=== PATIENT | female | born 2000 | race Caucasian/White ===

== ENCOUNTER 2018-10-07 18:06 | Emergency (ER) | payer OTHER ==
--- NOTE | 2018-10-07 18:45 | ER Document Report ---
ED Medical Screen (RME) - General Chief Complaint: Abdominal Cramping Stated Complaint: VAGINAL CRAMPING/BLEEDING Time Seen by Provider: 10/07/18 18:41 Mode of Arrival: Ambulatory Information source: Patient Notes: 17-year-old female presents to the emergency room with pelvic cramping and vaginal bleeding (small amount) since yesterday. Patient knows her blood type: It is O-. Patient knows her 's blood type and it is also O-. So both mother and father have a blood type that is Rh-. Patient denies any vomiting, abdominal pain, chest pain or shortness of breath. Patient denies any recent illnesses. - HPI Onset: Yesterday Onset/Duration: Gradual Quality of pain: Cramping Severity: None Pain Level: Denies Associated Symptoms: denies: Chest pain, Diarrhea, Nausea, Shortness of breath Exacerbated by: Denies Relieved by: Denies Similar symptoms previously: No Recently seen / treated by doctor: No - Related Data Smoking: Non-smoker Frequency of alcohol use: None Drug Abuse: None Allergies/Adverse Reactions: No Known Allergies Allergy (Unverified 10/07/18 18:08) Past Medical History - General Information source: Patient - Social History Cigarette use (# per day): No Chew tobacco use (# tins/day): No Frequency of alcohol use: None Drug Abuse: None Lives with: Family Family history: None - Medical History Medical History: Negative Renal/ Medical History: Denies: Hx Peritoneal Dialysis Surgical Hx: Negative Review of Systems - Review of Systems Constitutional: denies: Chills, Fever EENT: No symptoms reported Cardiovascular: No symptoms reported Respiratory: No symptoms reported Gastrointestinal: No symptoms reported Genitourinary: No symptoms reported Female Genitourinary: See HPI Musculoskeletal: No symptoms reported Skin: No symptoms reported Hematologic/Lymphatic: No symptoms reported Neurological/Psychological: No symptoms reported Physical Exam - Vital signs Vitals: Temp Pulse Resp BP Pulse Ox 99.9 F 79 16 131/73 H 100 10/07/18 18:19 10/07/18 18:19 10/07/18 18:19 10/07/18 18:19 10/07/18 18:19 Notes: Physical exam: GENERAL: Patient is alert and oriented x3, no acute distress HEAD: Atraumatic, normocephalic. EYES: Pupils equal round and reactive to light, extraocular movements intact, sclera anicteric, conjunctiva are normal. ENT: Moist mucous membranes. NECK: Normal range of motion, supple without obvious mass or JVD. LUNGS: Breath sounds clear to auscultation bilaterally and equal. No wheezes ra les or rhonchi. HEART: Regular rate and rhythm without murmurs, rubs or gallops. ABDOMEN: Soft, normoactive bowel sounds. No tenderness to palpation. No guarding, no rebound. No masses appreciated. Pelvic: Deferred (patient getting transvaginal ultrasound). EXTREMITIES: Normal range of motion, no pitting or edema. No clubbing or cyanosis. NEUROLOGICAL: Cranial nerves II through XII grossly intact. Normal speech, moving all extremities. PSYCH: Normal mood, normal affect. SKIN: Warm, Dry, normal turgor, no rashes or lesions noted. Course - Re-evaluation Re-evalutation: 10/07/18 20:25 As mentioned already: The patient's blood type is O-. The 's blood type is known and it is also O-. I discussed the issue of RhoGam and we have deferred that test. Patient otherwise looks good and the ultrasound looks good. - Vital Signs Vital signs: Temp Pulse Resp BP Pulse Ox 99.9 F 79 16 131/73 H 100 10/07/18 18:19 10/07/18 18:19 10/07/18 18:19 10/07/18 18:19 10/07/18 18:19 - Laboratory Laboratory results interpreted by me: 10/07/18 19:15 Urine Urobilinogen 2.0 H - Diagnostic Test Radiology reviewed: Image reviewed, Reports reviewed - Ultrasound shows a living intrauterine at 8 weeks, 3 days. The baby's heartbeat was 175. Doctor's Discharge - Discharge Clinical Impression: Vaginal bleeding in early Condition: Stable Disposition: HOME, SELF-CARE Instructions: Bleeding During Early ([facility]) Additional Instructions: As we discussed, the ultrasound showed a living intrauterine at 8 weeks and 3 days. The baby's heartbeat was 175 which is good. Because of the bleeding, I want you to take it easy over the next 2 weeks. Avoid heavy lifting. Avoid intercourse. Follow-up with your OB doctor. Return to the emergency room for worsening cramping, vaginal bleeding or any concerns or getting worse.
[2018-10-07 19:33] LABS: APPEARANCE,URINE CLEAR; BILIRUBIN,URINE NEGATIVE (NEGATIVE); COLOR,URINE YELLOW; GLUCOSE, URINE NEGATIVE (NEGATIVE); KETONES,URINE NEGATIVE (NEGATIVE); LEUKOCYTE ESTERASE,URINE NEGATIVE (NEGATIVE); NITRITE,URINE NEGATIVE (NEGATIVE); PROTEIN,URINE NEGATIVE (NEGATIVE); URINE SPECIFIC GRAVITY 1.018
--- NOTE | 2018-10-07 20:19 | RADIOLOGY REPORT (SQ) ---
EXAM DESCRIPTION: US TRANSVAGINAL COMPLETED DATE/TME: 10/07/2018 18:41 CLINICAL HISTORY: 17 years Female preg, vag bleeding COMPARISON: None. TECHNIQUE: Transabdominal duplex imaging performed to evaluate the pelvis. FINDINGS: Uterus measures 9.9 x 5.7 x 7.7 cm. There is an intrauterine gestational sac. pole and yolk sac are noted. Cervix is closed and measures 3.2 cm. heart rate 175 bpm. [place]-rump length 1.9 cm. The left ovary measures 2.2 x 2.6 cm with normal flow. Right ovary measures 2.7 x 1.7 cm with normal flow. IMPRESSION: Living IUP corresponding to eight weeks three days
[2018-10-07 20:45] VITALS: BP 112/74
== END 2018-10-07 20:46 | disposition home or self-care (01) ==
LOC: ER 18:06
DX: O46.91 Antepartum hemorrhage, unspecified, first trimester (principal); O26.891 Other specified pregnancy related conditions, first trimester; R10.9 Unspecified abdominal pain; R10.2 Pelvic and perineal pain; Z3A.08 8 weeks gestation of pregnancy
CPT/HCPCS: 36415; 76817; 81001; 84702; 99284

== ENCOUNTER 2018-10-11 20:38 | Emergency (ER) | payer OTHER ==
[2018-10-11 22:37] LABS: APPEARANCE,URINE SLIGHTLY-CLOUDY; BILIRUBIN,URINE NEGATIVE (NEGATIVE); COLOR,URINE YELLOW; GLUCOSE, URINE NEGATIVE (NEGATIVE); KETONES,URINE 20 mg/dL (NEGATIVE); LEUKOCYTE ESTERASE,URINE NEGATIVE (NEGATIVE); NITRITE,URINE NEGATIVE (NEGATIVE); PROTEIN,URINE NEGATIVE (NEGATIVE); URINE SPECIFIC GRAVITY 1.026
--- NOTE | 2018-10-11 22:56 | ER Document Report ---
ED General - General Chief Complaint: Abdominal Cramping/Preg+ Stated Complaint: ABDOMINAL PAIN, BACK PAIN Time Seen by Provider: 10/11/18 22:42 Mode of Arrival: Ambulatory Information source: Patient TRAVEL OUTSIDE OF THE [place] IN LAST 30 DAYS: No - HPI Patient complains to provider of: Increasing pelvic and low back pain in very early Notes: 17-year-old white female primigravida here 4 days ago with vaginal spotting. Ultrasound showed a live IUP. Patient states that the spotting has subsided but now she has been having increased low abdominal cramps and back cramps. Her OB told her to come here to be rechecked. - Related Data Allergies/Adverse Reactions: No Known Allergies Allergy (Unverified 10/07/18 18:08) Past Medical History - General Information source: Patient - Social History Smoking Status: Never Smoker Family History: Reviewed & Not Pertinent Renal/ Medical History: Denies: Hx Peritoneal Dialysis Review of Systems - Review of Systems Notes: Constitutional: No fevers. No chills. EENT: No eye redness. No eye pain. No ear pain. No sore throat. Cardiovascular: No chest pain. No palpitations. Respiratory: No cough. No shortness of breath. No respiratory distress. Gastrointestinal: No abdominal pain. No nausea, vomiting, or diarrhea. Genitourinary: Positive for pelvic pain. Negative for vaginal bleeding Musculoskeletal: Positive for low back pain Skin: No rash or lesions. Lymphatic: No swollen lymph nodes. Neurologic: No headache. No syncope. Psychiatric: No suicidal or homicidal ideation. Physical Exam - Vital signs Vitals: Temp Pulse Resp BP Pulse Ox 99.8 F 80 16 118/67 100 10/11/18 21:08 10/11/18 21:08 10/11/18 21:08 10/11/18 21:08 10/11/18 21:08 - Notes Notes: General: Well-developed, well-nourished. In no acute distress. Non-toxic appearing. Cardiac: Well-perfused. Regular rate and rhythm. No murmurs, rubs, or gallops. Pulmonary: No respiratory distress. No cyanosis. Bilateral lung vasquez are clear to auscultation. Abdominal: Non-distended. Non-rigid. Bowels sounds are present in all four quadrants. No guarding or rebound. HEENT: Head is atraumatic. Conjunctivae not reddened. No tearing. PERRL. EOMI. Orbits atraumatic. No periorbital swelling or erythema. Oropharynx is without erythema, swelling, or exudates. Neck: Supple. No adenopathy. No meningismus. Dermatologic: Warm with good turgor. No rash. Atraumatic. Chest: Atraumatic. No chest wall tenderness to palpation. Musculoskeletal: Moves all extremities well. No range of motion deficits. no muscular or joint tenderness. No paraspinal muscle tenderness. no midline spinal tenderness or step-off. Genitourinary: Examination deferred Neurologic: No gross neurologic deficits. Psychiatric: Normal mood. Course - Re-evaluation Re-evalutation: 10/11/18 23:00 Patient's desktop support consultant obviously wanted her to get checked to make sure the baby was still alive. She does not have any bleeding. I will defer up exam at this time for that reason. I will check her electrolytes and her blood counts and her urine to make sure she is not infected. 10/12/18 00:41 Ultrasound is normal for a 9-week 1 day intrauterine gestation with cardiac activity. I reconfirmed that the patient is O- blood type. Her she is adamant has O- blood as well. Thus her baby will always have O- blood type as long as the same gentleman is the father. There will be no Rh incompatibility in this case. Patient declines RhoGam. - Vital Signs Vital signs: Temp Pulse Resp BP Pulse Ox 99.8 F 80 16 118/67 100 10/11/18 21:08 10/11/18 21:08 10/11/18 21:08 10/11/18 21:08 10/11/18 21:08 - Laboratory Result Diagrams: 10/11/18 23:04 10/11/18 23:04 Laboratory results interpreted by me: 10/11/18 10/11/18 10/11/18 22:15 22:15 23:04 Sodium 135.1 L Creatinine 0.51 L Urine Ketones 20 H Urine Urobilinogen 2.0 H Urine Ascorbic Acid 40 H Urine HCG, Qual POSITIVE H Discharge - Discharge Clinical Impression: Abdominal cramping affecting Low back pain Qualifiers: Chronicity: acute Back pain laterality: unspecified Sciatica presence: without sciatica Qualified Code(s): M54.5 - Low back pain Disposition: HOME, SELF-CARE Instructions: ([facility]) Additional Instructions: Drink plenty of fluids and get plenty of rest. Take vitamins as directed. Follow-up with your desktop support consultant as needed. Referrals: OB, YOUR [Other] - Follow up as needed
[2018-10-11 23:12] LABS: ABSOLUTE BASOPHILS # (AUTO) 0.1 10^3/uL (0.0-0.2); ABSOLUTE EOSINOPHILS # (AUTO) 0.1 10^3/uL (0.0-0.6); ABSOLUTE LYMPHOCYTES (AUTO) 2.4 10^3/uL (0.5-4.7); ABSOLUTE MONOCYTES (AUTO) 0.5 10^3/uL (0.1-1.4); BASOPHILS % (AUTO) 0.6 % (0-2); EOSINOPHILS % (AUTO) 0.7 % (0-6); HEMATOCRIT 39.1 % (36.0-47.0); HEMOGLOBIN 13.8 g/dL (12.0-15.5); LYMPHOCYTES % (AUTO) 26.6 % (13-45); MEAN CORPUSCULAR HGB CONC 35.4 g/dL (32.0-36.0); MEAN CORPUSCULAR VOLUME 88 fl (80-97); PLATELET COUNT 274 10^3/uL (150-450); RED BLOOD COUNT 4.46 10^6/uL (3.72-5.28); SEGMENTED NEUTROPHILS % (AUTO) 66.1 % (42-78); TOTAL CELLS COUNTED % (AUTO) 100 %
[2018-10-11 23:33] LABS: ALANINE AMINOTRANSFERASE 24 U/L (5-35); ALBUMIN 4.5 g/dL (3.7-5.6); ALKALINE PHOSPHATASE 69 U/L (50-135); ANION GAP 8 (5-19); ASPARTATE AMINO TRANSFERASE 18 U/L (5-30); BILIRUBIN,DIRECT 0.1 mg/dL (0.0-0.4); BILIRUBIN,TOTAL 0.3 mg/dL (0.2-1.3); BLOOD UREA NITROGEN 7 mg/dL (7-20); CALCIUM 9.9 mg/dL (8.4-10.2); CARBON DIOXIDE 22 mmol/L (22-30); CHLORIDE 105 mmol/L (98-107); GLUCOSE 83 mg/dL (75-110); POTASSIUM 3.8 mmol/L (3.6-5.0); SODIUM 135.1 mmol/L (137-145); TOTAL PROTEIN 7.3 g/dL (6.3-8.2)
--- NOTE | 2018-10-12 00:07 | RADIOLOGY REPORT (SQ) ---
EXAM DESCRIPTION: US TRANSVAGINAL COMPLETED DATE/TME: 10/11/2018 22:53 CLINICAL HISTORY: 17 years, Female, low back pain and pelvic cramping COMPARISON: None. TECHNIQUE: LIMITATIONS: None. FINDINGS: There is a live 9 week 1 day IUP, based on a crown-rump length of 2.4 cm. Embryonic cardiac activity was measured at 162 bpm. No evidence of subchorionic hemorrhage. There is a normal amount of amniotic fluid. The cervix measures 3 cm in length and is closed. The ovaries are unremarkable. No free fluid. IMPRESSION: Unremarkable IUP. copyright 2010 [employer]- All Rights Reserved
[2018-10-12 01:04] VITALS: BP 99/57
== END 2018-10-12 00:50 | disposition home or self-care (01) ==
LOC: ER 20:38
DX: O26.891 Other specified pregnancy related conditions, first trimester (principal); M54.5 Low back pain; R10.2 Pelvic and perineal pain; R10.9 Unspecified abdominal pain; Z3A.09 9 weeks gestation of pregnancy
CPT/HCPCS: 36415; 76817; 80053; 81001; 81025; 85025; 86900; 86901; 99284